=== PATIENT | female | born 1990 | race Caucasian/White ===

== ENCOUNTER 2024-07-24 11:40 | Observation (INO) ==
[2024-07-24] MEDS: Ondansetron 4 mg VIAL 2 MG/ML 2 ml VIAL IV ONE (12:06)
[2024-07-24] MEDS: Pantoprazole VIAL 40 MG VIAL IV ONE (12:13)
[2024-07-24] MEDS: Lactated Ringers 1000 ml BAG IV.FLUID IV ONE (12:20)
[2024-07-24 12:29] LABS: Hematocrit 42.5 % (35-45); Mean Corpuscular Hemoglobin 37.7 pg (27-33); Mean Corpuscular Volume 114.1 fL (80-97); Red Blood Count 3.72 10^6/uL (3.63-4.92); Red Cell Distribution Width 14.6 % (12-17); White Blood Count 12.9 10^3/uL (3.8-11.8)
[2024-07-24 13:14] LABS: ABS Lymphocytes 0.6 10^3/uL (1.0-4.8); ABS Monocytes 0.6 10^3/uL (0.0-0.9); ABS Neutrophils 11.7 10^3/uL (1.5-7.6); ABS Nucleated RBC 0.01 10^3/ul; Lymphocyte % 4.4 %; Macrocytosis 2+; Mean Platelet Volume 10.3 fL (7.5-11.2); Nucleated Red Blood Cells % 0.1 %/100WBC (0.0-0.8); Platelet Count 70 10^3/uL (150-450)
[2024-07-24 13:22] LABS: HCG Pregnancy < 0.60 mIU/mL
[2024-07-24] MEDS ORDERED: Lorazepam PYXIS KEY PRN (13:23)
[2024-07-24 13:34] LABS: ALT 129 U/L (7-52); Albumin 4.8 g/dL (3.5-5.7); Albumin/Globulin Ratio 1.7 (1-3); Alkaline Phosphatase 116 U/L (35-149); Anion Gap 29 mmol/L (2-16); Blood Urea Nitrogen 16 mg/dL (6-24); CO2 Carbon Dioxide 9 mmol/L (22-32); Calcium 8.9 mg/dL (8.6-10.3); Chloride 96 mmol/L (101-111); Creatinine, Serum 1.01 mg/dL (0.51-0.95); Globulin 2.8 g/dL (2-4); Glucose 129 mg/dL (70-100); Lipase 26 U/L (11.0-82.0); Magnesium 1.9 mg/dL (1.9-2.7); Sodium 134 mmol/L (135-145); Total Bilirubin 1.9 mg/dL (0.2-1.0); Total Protein 7.6 g/dL (6.4-8.9); eGFR CKD-EPI 76.3 (>60)
[2024-07-24] MEDS: LORazepam 2 mg VIAL 1 ml IV PUSH ONE (14:00)
[2024-07-24] MEDS: ACETAMINOPHEN IV ONE (14:03)
[2024-07-24] MEDS: D5NS 0.9% 1000 ml BAG 1,000 ML IV ONE (14:03)
[2024-07-24 14:09] LABS: Urine Appearance Turbid; Urine Bilirubin Negative (Negative); Urine Blood Trace (Negative); Urine Color Yellow; Urine Glucose Negative (Negative); Urine Ketones 4+ (Negative); Urine Nitrite Negative (Negative); Urine Protein 1+ (>=30 mg/dL) (Negative); Urine Urobilinogen Negative (Negative); Urine pH 5.5 (5.0-8.0)
[2024-07-24 14:16] LABS: Urine Bacteria 1+ /HPF (Absent); Urine Granular Casts Present /LPF (Absent); Urine Red Blood Cell Trace(0-2/hpf) /HPF (0-Trace); Urine Squamous Epithelial Cell Present /HPF (Absent); Urine White Blood Cell Trace(0-5/hpf) /HPF (0-Trace)
[2024-07-24 15:01] LABS: Urine Benzodiazepine Screen None Detected (None Detect); Urine Cannabinoids Screen None Detected (None Detect); Urine Opiates Screen None Detected (None Detect)
[2024-07-24] MEDS ORDERED: THIAMINE IV SCH (16:00)
[2024-07-24] MEDS ORDERED: NS 0.9% IV SCH (16:00)
[2024-07-24] MEDS ORDERED: D5W 1/2 NS 1000 ml BAG 1,000 ML IV SCH (16:00)
[2024-07-24] MEDS ORDERED: Thiamine 100 MG/ML 2 ml VIAL 250 MG in NS 0.9% 100 ml BAG 100 ML IV SCH (16:00)
[2024-07-24 16:18] LABS: Alcohol, S < 13 mg/dL (<13); Anion Gap 17 mmol/L (2-16); Blood Urea Nitrogen 15 mg/dL (6-24); CO2 Carbon Dioxide 13 mmol/L (22-32); Calcium 7.6 mg/dL (8.6-10.3); Chloride 100 mmol/L (101-111); Creatinine, Serum 0.76 mg/dL (0.51-0.95); Folate 3.05 ng/mL (5.90-24.80); Glucose 299 mg/dL (70-100); Magnesium 1.5 mg/dL (1.9-2.7); Sodium 130 mmol/L (135-145); Vitamin B12 377 pg/mL (180-914); eGFR CKD-EPI 107.4 (>60)
[2024-07-24] MEDS: Multivitamins/Minerals TAB PO SCH (16:32)
[2024-07-24] MEDS ORDERED: Ondansetron 4 mg VIAL 2 MG/ML 2 ml VIAL IV PRN (16:52)
[2024-07-24 16:58] LABS: TSH Ultra Thyroid Stim Horm 1.12 mcIU/mL (0.34-5.60)
[2024-07-24] MEDS: Magnesium Sulfate 2 gm BAG 2 GM/50 ML BAG IVPB ONE (17:01)
[2024-07-24] MEDS: THIAMINE IV SCH (17:02)
[2024-07-24] MEDS: NS 0.9% IV SCH (17:02)
[2024-07-24 17:42] LABS: Anion Gap 13 mmol/L (2-16); Blood Urea Nitrogen 14 mg/dL (6-24); CO2 Carbon Dioxide 15 mmol/L (22-32); Calcium 7.5 mg/dL (8.6-10.3); Chloride 101 mmol/L (101-111); Creatinine, Serum 0.81 mg/dL (0.51-0.95); Glucose 410 mg/dL (70-100); Sodium 129 mmol/L (135-145); eGFR CKD-EPI 99.5 (>60)
[2024-07-24 17:43] LABS: Hepatitis B Surface Antigen Nonreactive (Nonreactive)
[2024-07-24 17:49] LABS: Hepatitis A Ab IgM Negative (Negative); Hepatitis B Core IgM Nonreactive (Nonreactive)
[2024-07-24 18:01] LABS: Hepatitis C Antibody Negative (Negative)
[2024-07-24] MEDS: D5NS 0.9% 1000 ml BAG 1,000 ML IV SCH (18:17)
[2024-07-24] MEDS ORDERED: Magnesium Sulfate IV 1GM/100ML 1 GM/100 ML BAG IV ONE (18:20)
[2024-07-24 19:40] LABS: High Sensitivity Troponin 1 Hr 10 pg/mL (<15)
[2024-07-24 19:41] LABS: Potassium Redraw 4.4 mmol/L (3.5-5.0)
[2024-07-24] MEDS: Calcium Carb (TUMS) 500 mg CHEW TAB PO PRN (19:46)
[2024-07-24] MEDS: Magnesium Sulfate IV 1GM/100ML 1 GM/100 ML BAG IV ONE (19:47)
[2024-07-24 19:49] LABS: AST Redraw 199 U/L (13-39); Magnesium 1.8 mg/dL (1.9-2.7); Phosphorus < 1.0 mg/dL (2.5-5.0)
[2024-07-24] MEDS: Potassium & Sodium Phos 250 mg = 1 PACKET PO SCH (20:36)
[2024-07-24] MEDS: NS 0.9% 1000 ml BAG 1,000 ML IV SCH (20:37)
[2024-07-24] MEDS: Potassium Phosphate IV 15 MMOL in NS 0.9% 250 ml 250 ML IVPB ONE (20:50)
[2024-07-24] MEDS: Al Hydrox/Mg Hydrox/Simet LIQ 30 ML UDC PO ONE (21:20)
[2024-07-24] MEDS: Iohexol 350 (CONTRAST) 500 ML MDV IV ONE (23:01)
[2024-07-25 03:21] LABS: ABS Lymphocytes 1.1 10^3/uL (1.0-4.8); ABS Monocytes 0.3 10^3/uL (0.0-0.9); ABS Neutrophils 7.9 10^3/uL (1.5-7.6); ABS Nucleated RBC 0.01 10^3/ul; Eosinophil % 0.2 %; Hematocrit 36.5 % (35-45); Hemoglobin 12.5 g/dL (11.5-14.3); Mean Corpuscular Hemoglobin 37.8 pg (27-33); Mean Corpuscular Hgb Conc 34.2 g/dL (31-36); Mean Corpuscular Volume 110.3 fL (80-97); Mean Platelet Volume 10.3 fL (7.5-11.2); Nucleated Red Blood Cells % 0.1 %/100WBC (0.0-0.8); Platelet Count 47 10^3/uL (150-450); Red Blood Count 3.31 10^6/uL (3.63-4.92); Red Cell Distribution Width 13.9 % (12-17); White Blood Count 9.4 10^3/uL (3.8-11.8)
[2024-07-25 03:48] LABS: Albumin 3.7 g/dL (3.5-5.7); Albumin/Globulin Ratio 1.7 (1-3); Calcium 8.2 mg/dL (8.6-10.3); Creatinine, Serum 0.62 mg/dL (0.51-0.95); Globulin 2.2 g/dL (2-4); Magnesium 2.3 mg/dL (1.9-2.7); Phosphorus 1.9 mg/dL (2.5-5.0); Potassium 4.2 mmol/L (3.5-5.0); Total Bilirubin 1.5 mg/dL (0.2-1.0); Total Protein 5.9 g/dL (6.4-8.9)
[2024-07-25] MEDS: Potassium Phosphate IV 5 MMOL in NS 0.9% 250 ml 250 ML IVPB ONE (05:43)
[2024-07-25 11:45] LABS: INR 1.14 (0.85-1.14)
[2024-07-25] MEDS: NS 0.9% 1000 ml BAG 1,000 ML IV ONE (12:10)
[2024-07-25] MEDS: Thiamine IV 500 MG in NS 0.9% 250 ML (Wernicke-Korsakoff) IV SCH (16:23)
[2024-07-26 06:55] LABS: Hematocrit 36.2 % (35-45); Hemoglobin 12.6 g/dL (11.5-14.3); Mean Corpuscular Hemoglobin 38.4 pg (27-33); Mean Corpuscular Hgb Conc 34.9 g/dL (31-36); Mean Corpuscular Volume 110.2 fL (80-97); Red Blood Count 3.29 10^6/uL (3.63-4.92); Red Cell Distribution Width 13.6 % (12-17); White Blood Count 5.5 10^3/uL (3.8-11.8)
[2024-07-26 07:34] LABS: ABS Eosinophils 0.1 10^3/uL (0.0-0.5); ABS Lymphocytes 1.4 10^3/uL (1.0-4.8); ABS Monocytes 0.2 10^3/uL (0.0-0.9); ABS Neutrophils 3.7 10^3/uL (1.5-7.6); ABS Nucleated RBC 0.01 10^3/ul; Eosinophil % 1.3 %; Lymphocyte % 26.1 %; Mean Platelet Volume 11.6 fL (7.5-11.2); Nucleated Red Blood Cells % 0.1 %/100WBC (0.0-0.8); Platelet Count 41 10^3/uL (150-450)
[2024-07-26 08:14] LABS: Calcium 8.8 mg/dL (8.6-10.3); Creatinine, Serum 0.41 mg/dL (0.51-0.95); Potassium 3.5 mmol/L (3.5-5.0); eGFR CKD-EPI 134.8 (>60)
[2024-07-26 13:45] VITALS: BP 100/77
== END 2024-07-26 15:27 | disposition home or self-care (01) ==
LOC: ED 11:40 → EDHOLD 11:40 → MEDTELE 16:27
PROVIDERS: ADMIT Student in an Organized Health Care Education/Training Program; ATTEND Student in an Organized Health Care Education/Training Program